=== PATIENT | female | born 1980 | race Caucasian/White ===

== ENCOUNTER → 2020-06-23 | Outpatient (CLI) | payer BC | LOC: HEART 5 10:49 | DX: R00.2 Palpitations (principal) ==

== ENCOUNTER → 2020-07-29 | Outpatient (CLI) | payer BC, SELFPAY | LOC: HEART 5 10:00 | DX: R07.9 Chest pain, unspecified (principal); R06.02 Shortness of breath; I07.1 Rheumatic tricuspid insufficiency | CPT/HCPCS: 93306 ==

== ENCOUNTER → 2020-08-02 | Outpatient (CLI) | payer BC, SELFPAY | LOC: HEART 5 10:48 | DX: R07.9 Chest pain, unspecified (principal) ==

== ENCOUNTER → 2020-08-18 | Outpatient (CLI) | payer BC, SELFPAY | LOC: HEART 5 09:50 | DX: R07.9 Chest pain, unspecified (principal); R00.2 Palpitations; R06.02 Shortness of breath ==

== ENCOUNTER → 2021-05-17 | Outpatient (CLI) | payer BC | LOC: RAD 09:10 | DX: M25.541 Pain in joints of right hand (principal); M25.542 Pain in joints of left hand | CPT/HCPCS: 73130 ==